=== PATIENT | male | born 1960 | race Caucasian/White ===

== ENCOUNTER → 2019-03-09 | Outpatient (CLI) | payer BC ==
--- NOTE | 2019-03-09 16:58 | US ---
EXAMINATION TYPE: US liver DATE OF EXAM: 03/09/2019 COMPARISON: NONE CLINICAL HISTORY: K76.0 Fatty Liver. Abnormal labs, NPO EXAM MEASUREMENTS: Liver Length: 19.2 cm Gallbladder Wall: 0.2 cm CBD: 0.4 cm CHD: 0.2 cm Right Kidney: 11.4 x 4.9 x 4.6 cm Pancreas: Appears echogenic in appearance. Tail obscured by overlying bowel gas Liver: Increased attenuation, decreased visualization of vessels suggestive of fatty infiltrate. Ap pears coarse and enlarged. Focal sparing seen adjacent to gallbladder. Gallbladder: wnl, fold seen Evidence for sonographic [place]'s sign: neg CBD: wnl CHD: wnl Right Kidney: wnl IMPRESSION: 1. Mild fatty infiltration liver. Hepatomegaly is present. 2. Some focal sparing may be adjacent to the gallbladder within the liver.
== END | disposition home or self-care (01) ==
LOC: RADUSWWP 10:52
PROVIDERS: ATTEND Family Medicine
DX: K76.0 Fatty (change of) liver, not elsewhere classified (principal)
CPT/HCPCS: 76705